=== PATIENT | female | born 1960 | race Caucasian/White ===

== ENCOUNTER 2022-05-03 14:56 | Outpatient (CLI) | payer BC | END 2022-05-03 14:57 | disposition home or self-care (01) | LOC: BICMAMMO 14:56 | PROVIDERS: ATTEND Family Medicine | DX: Z12.31 Encounter for screening mammogram for malignant neoplasm of breast (principal); Z80.3 Family history of malignant neoplasm of breast | CPT/HCPCS: 77063; 77067 ==

== ENCOUNTER 2023-05-14 13:25 | Outpatient (CLI) | payer BC | END 2023-05-14 13:26 | disposition home or self-care (01) | LOC: BICMAMMO 13:25 | PROVIDERS: ATTEND Family Medicine | DX: Z12.31 Encounter for screening mammogram for malignant neoplasm of breast (principal); Z80.3 Family history of malignant neoplasm of breast | CPT/HCPCS: 77063; 77067 ==

== ENCOUNTER 2024-05-14 13:42 | Outpatient (CLI) | payer BC | END 2024-05-14 13:43 | disposition home or self-care (01) | LOC: BICMAMMO 13:42 | PROVIDERS: ATTEND Family Medicine | DX: Z12.31 Encounter for screening mammogram for malignant neoplasm of breast (principal); Z80.3 Family history of malignant neoplasm of breast | CPT/HCPCS: 77063; 77067 ==

== ENCOUNTER 2025-05-15 08:13 | Outpatient (CLI) | payer BC, MEDICARE | END 2025-05-15 08:14 | disposition home or self-care (01) | LOC: BICMAMMO 08:13 | PROVIDERS: ATTEND Family Medicine | DX: Z12.31 Encounter for screening mammogram for malignant neoplasm of breast (principal); Z80.3 Family history of malignant neoplasm of breast | CPT/HCPCS: 77063; 77067 ==

== ENCOUNTER 2025-08-27 12:27 | Day surgery (SDC) | payer BC ==
[2025-08-26 10:58] VITALS: BMI 42.5
[2025-08-27] MEDS ORDERED: Rocuronium Bromide 10 MG/ML (10ML VIAL) ONE (14:17)
[2025-08-27] MEDS ORDERED: PHENYLEPHRINE-NS 100 MCG/ML 10 ML SYRINGE ONE (14:17)
[2025-08-27] MEDS ORDERED: PROPOFOL 200 MG/20 ML VIAL ONE (14:17)
[2025-08-27] MEDS ORDERED: Lidocaine 1% PF 5 ML VIAL ONE (14:17)
[2025-08-27] MEDS ORDERED: Ondansetron PF 4 MG/2 ML Vial ONE (14:33)
[2025-08-27] MEDS ORDERED: SUGAMMADEX SODIUM 200 MG/2 ML VIAL ONE (14:56)
== END 2025-08-27 16:11 | disposition home or self-care (01) ==
LOC: SDC 12:27
PROVIDERS: ATTEND Internal Medicine Gastroenterology
PROC: 0DJD8ZZ Inspection of Lower Intestinal Tract, Via Natural or Artificial Opening Endoscopic (ICD-10-PCS; principal; 2025-08-27)
DX: K91.0 Vomiting following gastrointestinal surgery (principal); K64.8 Other hemorrhoids; Z86.0100 Personal history of colon polyps, unspecified; Z90.710 Acquired absence of both cervix and uterus; Z88.2 Allergy status to sulfonamides
CPT/HCPCS: J1100; J2405; J2704